=== PATIENT | male | born 1975 | race Caucasian/White ===

== ENCOUNTER 2020-03-23 12:32 | Outpatient (REF) | payer MEDICAID, SELFPAY ==
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
== END 2020-03-23 12:33 | disposition home or self-care (01) ==
LOC: HO.XRAY 12:32
PROVIDERS: PCP Nurse Practitioner Family; Visit Provider Nurse Practitioner Family
DX: R06.02 Shortness of breath (principal)
CPT/HCPCS: 71046

== ENCOUNTER 2020-04-02 15:02 | Outpatient (REF) | payer MEDICAID, SELFPAY ==
--- NOTE | 2020-04-02 | PFT_ITS ---
Forced vital capacity moderately decreased. FEV1, [id number], and MVV are markedly decreased. Post bronchodilator, no significant improvement noted. Total lung capacity slightly decreased. Residual volume is normal. Diffusion capacity normal. CONCLUSION: Very mild degree of restrictive pulmonary disorder. Severe obstructive airway disorder without any response to bronchodilator therapy. Clinical correlation is recommended. MD KEE Hills/JOSE GUADALUPE / [phone]
== END 2020-04-02 15:03 | disposition home or self-care (01) ==
LOC: HO.RESP 15:02
DX: R06.02 Shortness of breath (principal)
CPT/HCPCS: 94010; 94060; 94727; 94729

== ENCOUNTER 2020-09-12 12:08 | Emergency (ER) | payer MEDICAID, SELFPAY ==
--- NOTE | ~2020-09-12 | XR_ITS ---
EXAMINATION: XR FOOT, LEFT CLINICAL INFORMATION: Left foot injury with pain COMPARISON: None TECHNIQUE: AP, lateral, and oblique views of the left foot. FINDINGS: There is no evidence of acute fracture or dislocation of the left foot. No significant soft tissue swelling is appreciated. There is some plantar soft tissue radiopaque foreign bodies measuring 2 mm or smaller in size at the level of the bases of the metatarsals. Achilles calcaneal spur seen. XR/XR foot LT min 3V IMPRESSION: No bony abnormality of the left foot identified. Small metallic radiopaque foreign bodies plantar aspect level bases of the metatarsals.
[2020-09-12 12:26] VITALS: BP 146/91; PULSE 105; RESP 16; TEMP 36.6; O2SAT 98; BMI 29.8
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
== END 2020-09-12 14:31 | disposition home or self-care (01) ==
PROVIDERS: Emergency Provider Emergency Medicine Emergency Medical Services
DX: S93.402A Sprain of unspecified ligament of left ankle, initial encounter (principal); M25.572 Pain in left ankle and joints of left foot; M79.5 Residual foreign body in soft tissue; F11.90 Opioid use, unspecified, uncomplicated; X50.1XXA Overexertion from prolonged static or awkward postures, initial encounter; Y93.9 Activity, unspecified; Y92.9 Unspecified place or not applicable; Y99.0 Civilian activity done for income or pay; Z79.899 Other long term (current) drug therapy; F17.200 Nicotine dependence, unspecified, uncomplicated; Z71.6 Tobacco abuse counseling
CPT/HCPCS: 73630; 99283

== ENCOUNTER 2021-07-25 13:20 | Emergency (ER) | payer MEDICAID, SELFPAY ==
--- NOTE | ~2021-07-25 | XR_ITS ---
EXAMINATION: XR FOOT, LEFT CLINICAL INFORMATION: Hard spot on bottom of left foot COMPARISON: September 12, 2020 TECHNIQUE: AP, lateral, and oblique views of the left foot. FINDINGS: There is no evidence of acute fracture or dislocation of the left foot. No significant soft tissue swelling is appreciated. Joint spaces are maintained. There are again noted to be 2 metallic radiopaque foreign bodies about the plantar aspects of the first and second metatarsals. There is a small Achilles calcaneal spur. XR/XR foot LT 2V IMPRESSION: Stable appearance of the left foot without significant bony abnormality appreciated.
[2021-07-25 13:47] VITALS: BP 137/85; PULSE 77; RESP 19; TEMP 36.6; O2SAT 98; BMI 25.8
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
== END 2021-07-25 15:43 | disposition home or self-care (01) ==
PROVIDERS: Emergency Provider Emergency Medicine Emergency Medical Services
DX: L84 Corns and callosities (principal); M79.672 Pain in left foot; Z79.899 Other long term (current) drug therapy
CPT/HCPCS: 73620; 99283

== ENCOUNTER 2022-03-25 18:27 | Emergency (ER) | payer MEDICAID, SELFPAY ==
[2022-03-25 19:45] VITALS: BP 138/95; PULSE 83; RESP 16; TEMP 36.8; O2SAT 98; BMI 25.8
[2022-03-25 20:02] LABS: MANUAL DIFF FLAG NO
[2022-03-25 20:03] LABS: Basophils Absolute Auto 0.1 X10*3/uL (0.0-0.2); Basophils Percent Auto 0.5 % (0-2); Eosinophils Absolute Auto 0.2 X10*3/uL (0.0-0.4); Eosinophils Percent Auto 1.6 % (0-4); Hematocrit 41.9 % (42.0-52.0); Hemoglobin 13.6 g/dl (14.0-18.0); Imm Gran Abs Auto 0.03 X10*3/uL (0.00-0.03); Imm Gran Pct Auto 0.3 % (0.0-0.4); Lymphocytes Absolute Auto 2.6 X10*3/uL (1.2-4.9); Lymphocytes Percent Auto 25.5 % (20-40); Mean Corpuscular HGB Conc 32.5 g/dl (31.0-36.0); Mean Corpuscular Hemoglobin 26.1 pg (27.0-33.0); Mean Corpuscular Volume 80.3 fL (80.0-98.0); Mean Platelet Volume 11.1 fL (9.4-12.4); Monocytes Absolute Auto 0.8 X10*3/uL (0.1-1.2); Monocytes Percent Auto 7.8 % (2-11); Neutrophils Absolute Auto 6.5 x10*3/uL (2.0-8.3); Neutrophils Percent Auto 64.3 % (45-73); Platelet Count 209 X10*3/uL (160-400); Red Blood Count 5.22 X10*6/uL (4.60-5.80); Red Cell Distribution Width 14.5 % (11.0-16.0); White Blood Count 10.1 X10*3/uL (4.8-10.8)
[2022-03-25 20:15] LABS: Anion Gap 18 (12-20); Blood Urea Nitrogen 14 mg/dL (9-16); Calcium 9.7 mg/dL (8.4-10.2); Carbon Dioxide 25 mmol/L (22-29); Chloride 102 mmol/L (96-108); Creatinine Clr Calc Pharmacy 114.5; Estimated Glomerular Filt Rate > 60; Glucose Random 122 mg/dL (60-115); Potassium 4.5 mmol/L (3.3-5.1); Sodium 140 mmol/L (135-145)
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
== END 2022-03-25 23:22 | disposition home or self-care (01) ==
PROVIDERS: Emergency Medicine; Emergency Provider Internal Medicine
DX: L03.115 Cellulitis of right lower limb (principal); Z79.899 Other long term (current) drug therapy
CPT/HCPCS: 36415; 80048; 85025; 99282; 99283

== ENCOUNTER 2022-10-24 19:41 | Emergency (ER) | payer MEDICAID, SELFPAY ==
--- NOTE | ~2022-10-24 | XR_ITS ---
EXAMINATION: XR WRIST, RIGHT XR HAND, RIGHT CLINICAL INFORMATION: Pain COMPARISON: None available. TECHNIQUE: PA, lateral, and oblique views of the right hand and wrist FINDINGS: RIGHT WRIST: There is no evidence of acute fracture or dislocation of the right wrist. Right wrist joint spaces are maintained. No significant degenerative changes appreciated. No erosive changes appreciated. RIGHT HAND: The bones and soft tissues are normal. No fracture. Alignment is anatomic. Joint spaces are maintained. No erosions or soft tissue calcifications. No radiopaque foreign body. XR/XR hand wrist RT IMPRESSION: No significant bony abnormality of the right hand or wrist appreciated.
[2022-10-24 19:42] VITALS: BP 145/86; PULSE 81; RESP 18; TEMP 36.1; O2SAT 100; BMI 20.3
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
== END 2022-10-24 22:54 | disposition home or self-care (01) ==
PROVIDERS: Emergency Provider Emergency Medicine
DX: M25.541 Pain in joints of right hand (principal); M79.641 Pain in right hand; M25.531 Pain in right wrist; Z79.899 Other long term (current) drug therapy
CPT/HCPCS: 73110; 73130; 99282; 99283

== ENCOUNTER 2023-01-26 13:31 | Outpatient (REF) | payer MEDICAID, SELFPAY ==
[2023-01-26 17:17] LABS: Alanine Aminotransferase 38 U/L (0-40); Albumin Level 4.5 g/dL (3.5-5.0); Alkaline Phosphatase 76 U/L (39-117); Aspartate Amino Transferase 30 U/L (5-37); Bilirubin Direct 0.2 mg/dL (0.0-0.5); Bilirubin Total 0.4 mg/dL (0.0-1.0); Total Protein 7.6 g/dL (6.5-8.0)
[2023-01-27 04:10] LABS: ~HepC Num1 0.06 S/CO (0.00-0.79); ~Hepatitis C Antibody Nonreactive (Nonreactive)
[2023-01-27 04:15] LABS: HBS Num1 0.13 mIU/mL (0-7.99); HBc Num1 0.06 S/CO (0.00-0.79); HBsAGNum1 0.44 S/CO (0.00-0.99); HIV AB/AG Nonreactive (Nonreactive); HIV Num 1 0.05 S/CO (0.00-0.99); Hepatitis B Core Antibody Nonreactive (Nonreactive); Hepatitis B Surface Antigen Negative (Negative); ~Hepatitis B Surface Antibody NONREACTIVE (Nonreactive)
[2023-01-27 04:20] LABS: Hepatitis A Antibody IgG Nonreactive (Nonreactive); Hepatitis A Antibody IgM 0.18 Index (0-0.79); ~Hepatitis A Antibody IgG 0.37 S/CO (0.00-0.99); ~Hepatitis A Antibody IgM Nonreactive (Nonreactive)
[2023-01-28 08:59] LABS: RPR Rapid Plasma Reagin NON-REACTIVE (NON-REACTIVE)
[2023-01-28 20:48] LABS: TS Negative Control Passed; TS Panel A 1; TS Panel B 1; TS Positive Control Passed; TSpotTB Negative (Negative)
== END 2023-01-26 13:32 | disposition home or self-care (01) ==
LOC: HO.HHCL 13:31
PROVIDERS: Visit Provider Emergency Medicine
DX: F11.20 Opioid dependence, uncomplicated (principal)
CPT/HCPCS: 36415; 80076; 86481; 86592; 86704; 86706; 86708; 86709; 86803; 87340; 87389